=== PATIENT | female | born 1990 | race Caucasian/White ===

== ENCOUNTER 2022-07-11 20:48 | Emergency (ER) | payer OTHER ==
[2022-07-11] MEDS ORDERED: SODIUM CHLORIDE 0.9% 1,000 ML IV STA (21:10)
--- NOTE | 2022-07-11 21:14 | ED Physician Documentation ---
PD HPI CHEST PAIN - Stated complaint Stated Complaint: IRREGULAR HB - Chief complaint Chief Complaint: Cardiac - History obtained from History obtained from: Patient - Additional information Additional information: Patient is a 31-year-old female with previous diagnosis of tachycardia, diabetes presenting for evaluation of feeling her heart racing all day today since 930 this morning. She reports at times it seems that her heart rate gets up to 190s and will come back down. She denies any exacerbating or alleviating factors. She has had a history of tachycardia in the past but it was brief and would only last a minute or 2. She did used to see a legal records clerk in [place] and did have a monitor on at some time. It was unclear what the diagnosis was but she was started on Toprol 50 mg daily which she has been compliant with.She denies alcohol use, excess caffeine use or recent use of cold medications. She denies recently being ill. She Reports decreased appetite today. She reports chest heaviness but not pain. She denies concern for .She does have a primary care doctor here but has not received referrals to a legal records clerk. She denies previous history of blood clots. Review of Systems Constitutional: denies: Fever Nose: denies: Congestion Cardiac: reports: Chest pain / pressure, Palpitations Respiratory: denies: Dyspnea, Cough GI: denies: Abdominal Pain, Vomiting, Diarrhea : denies: Dysuria Musculoskeletal: denies: Back pain Neurologic: denies: Syncope, Headache PD PAST MEDICAL HISTORY - Present Medications Home Medications: Ambulatory Orders Medication Instructions Recorded Confirmed Amitriptyline [Elavil] 10 mg PO QPM 07/11/22 07/11/22 Losartan [Cozaar] 100 mg PO DAILY 07/11/22 07/11/22 Metoprolol Succinate [Toprol Xl] 50 mg PO DAILY 07/11/22 07/11/22 glipiZIDE [Glucotrol] 5 mg PO DAILY 07/11/22 07/11/22 - Allergies Allergies/Adverse Reactions: Allergies Allergy/AdvReac Type Severity Reaction Status Date / Time Penicillins AdvReac Unknown Verified 07/11/22 20:58 PD ED PE NORMAL - General General: Alert and oriented X 3, No acute distress, Well developed/nourished - HEENT HEENT: Atraumatic, Moist mucous membranes - Neck Neck: Supple, no meningeal sign - Cardiac Cardiac: No murmur, Strong equal pulses, Other (Tachycardic, regular rhythm) - Respiratory Respiratory: No respiratory distress, Clear bilaterally - Abdomen Abdomen: Soft, Non tender, Non distended - Derm Derm: Warm and dry - Extremities Extremities: No edema - Neuro Neuro: No motor deficit, Normal speech Results - Vitals Vitals: Vital Signs - 24 hr 07/11/22 07/11/22 07/11/22 20:55 22:02 23:05 Temperature 36.4 C L Heart Rate 120 H 81 90 Respiratory 18 12 23 Rate Blood Pressure 141/90 H 112/88 H 111/69 O2 Saturation 98 100 100 Oxygen O2 Source Room air - EKG (time done) 2052 Rate: Rate (enter#) (119) Rhythm: Sinus tachycardia Intervals: Other (QTC 463) Ischemia: Q waves (Inferior leads). No: ST elevation c/w ischemia, ST d epression Compare to prior EKG: Old EKG unavailable (Patient also reports she does not have access to prior EKGs through a patient portal) - Labs Labs: Laboratory Tests 07/11/22 07/11/22 07/11/22 21:09 21:23 21:23 WBC 12.2 H RBC 4.34 Hgb 13.0 Hct 37.4 MCV 86.2 MCH 30.0 MCHC 34.8 RDW 12.5 Plt Count 259 MPV 10.9 H Neut # (Auto) 8.3 H Lymph # (Auto) 3.0 [place] # (Auto) 0.7 Eos # (Auto) 0.2 Baso # (Auto) 0.1 Absolute Nucleated RBC 0.00 Nucleated RBC % 0.0 D-Dimer Sodium 135 Potassium 3.8 Chloride 100 L Carbon Dioxide 24 Anion Gap 11.0 BUN 11 Creatinine 0.7 Estimated GFR (MDRD) 97 Glucose 217 H Calcium 9.8 Magnesium 2.2 Total Bilirubin 0.7 AST 20 ALT 27 Alkaline Phosphatase 34 L Troponin I High Sens Total Protein 8.0 Albumin 4.8 Globulin 3.2 Albumin/Globulin Ratio 1.5 TSH Urine HCG, Qual NEGATIVE Urine Opiates Screen NEGATIVE Ur Oxycodone Screen NEGATIVE Urine Methadone Screen NEGATIVE Ur Propoxyphene Screen NEGATIVE Ur Barbiturates Screen NEGATIVE Ur Tricyclics Screen POSITIVE H Ur Phencyclidine Scrn NEGATIVE Ur Amphetamine Screen NEGATIVE U Methamphetamines Scrn NEGATIVE U Benzodiazepines Scrn NEGATIVE Urine Cocaine Screen NEGATIVE U Cannabinoids Screen POSITIVE H 07/11/22 07/11/22 07/11/22 21:23 21:23 21:23 WBC RBC Hgb Hct MCV MCH MCHC RDW Plt Count MPV Neut # (Auto) Lymph # (Auto) [place] # (Auto) Eos # (Auto) Baso # (Auto) Absolute Nucleated RBC Nucleated RBC % D-Dimer 234.7 Sodium Potassium Chloride Carbon Dioxide Anion Gap BUN Creatinine Estimated GFR (MDRD) Glucose Calcium Magnesium Total Bilirubin AST ALT Alkaline Phosphatase Troponin I High Sens < 2.3 L Total Protein Albumin Globulin Albumin/Globulin Ratio TSH 4.02 Urine HCG, Qual Urine Opiates Screen Ur Oxycodone Screen Urine Methadone Screen Ur Propoxyphene Screen Ur Barbiturates Screen Ur Tricyclics Screen Ur Phencyclidine Scrn Ur Amphetamine Screen U Methamphetamines Scrn U Benzodiazepines Scrn Urine Cocaine Screen U Cannabinoids Screen PD MEDICAL DECISION MAKING - ED course Complexity details: reviewed results, re-evaluated patient, d/w patient, d/w family ED course: Patient with history of Tachycardia presenting for evaluation of feeling her heart racing. EKG demonstrates sinus tachycardia.Heart rate did not get above 120 or into the range to suggest SVT On the emergency department. Hemodynamically stable. Patient denies really any symptoms here such as chest pain or difficulty breathing. Labs obtained.D-dimer <250. Troponin is negative. Electrolytes reassuring and thyroid within normal limits. Chest x-ray is clear. Patient given IV fluids and heart rate improved with hydration to 70s to 80s. Patient is feeling better. Discussed continuing with her usual Toprol dose and close follow-up with her primary care doctor. Recommend cardiology Follow-up if PCP is able to place a referral as she has [facility]. Discussed concerning symptoms to return for.Patient and spouse at the bedside agreeable with plan. 2151 - Doing better, heart rate in 80s and 90s on pathologist assistant. Departure - Departure Disposition: 01 Home, Self Care Clinical Impression: Sinus tachycardia Condition: Stable Instructions: Tachycardia, ED Valsalva Maneuver Follow-Up: Wei Gonzalez [Primary Care Provider] - Comments: You were evaluated for a fast heart rate.Although your heart rate is fast, your rhythm appears to still be a normal one. We did check your electrolytes as well as markers to check for signs of a heart attack or blood clot As well as your thyroid function and those labs are all reassuring. Your blood sugar was slightly high in the 200 range. Your chest x-ray is clear. Your heart rate has improved here with hydration. I would recommend close follow-up with your primary care doctor. I would call or communicate with their office tomorrow to let them know you were in the emergency department for a fast heart rate to see if they will place a cardiology referral.If anytime you have any worsening symptoms please return to the emergency department. Please continue with taking your medications as prescribed. Discharge Date/Time: 07/11/22 23:05
[2022-07-11 21:18] LABS: MUDS CUTOFF CONCENTRATIONS CUTOFF CONC BELOW:
[2022-07-11 21:21] LABS: HCG UR QUAL NEGATIVE
[2022-07-11 21:32] LABS: AMPHETAMINE SCREEN,URINE NEGATIVE (NEGATIVE); BARBITURATE SCREEN,UR NEGATIVE (NEGATIVE); BENZODIAZEPINES SCREEN, URINE NEGATIVE (NEGATIVE); COCAINE SCREEN URINE NEGATIVE (NEGATIVE); METHADONE SCREEN, URINE NEGATIVE (NEGATIVE); METHAMPHETAMINES SCREEN, URINE NEGATIVE (NEGATIVE); OPIATE SCREEN, URINE NEGATIVE (NEGATIVE); OXYCODONE SCREEN, URINE NEGATIVE (NEGATIVE); PROPOXYPHENE SCREEN, URINE NEGATIVE (NEGATIVE); THC CANNABINOID SCREEN, URINE POSITIVE (NEGATIVE); TRICYCLIC ANTIDEPRESSANT,URINE POSITIVE (NEGATIVE)
[2022-07-11 21:32] LABS: BASOPHILS # (AUTO) 0.1 10^3/uL (0.0-0.1); BASOPHILS % (AUTO) 0.5 %; EOSINOPHILS # (AUTO) 0.2 10^3/uL (0.0-0.7); EOSINOPHILS % (AUTO) 1.9 %; HCT - HEMATOCRIT 37.4 % (37.0-47.0); LYMPHOCYTES % (AUTO) 24.3 %; MEAN CORPUSCULAR HGB CONC 34.8 g/dL (32.0-36.0); MEAN CORPUSCULAR VOLUME 86.2 fL (81.0-99.0); MEAN PLATELET VOLUME 10.9 fL (7.9-10.8); MONOCYTES # (AUTO) 0.7 10^3/uL (0.0-1.0); MONOCYTES % (AUTO) 5.5 %; NEUTROPHILS # (AUTO) 8.3 10^3/uL (1.5-6.6); NEUTROPHILS % (AUTO) 67.6 %; PLT - PLATELET COUNT 259 10^3/uL (130-450); RED BLOOD COUNT 4.34 10^6/uL (4.20-5.40); RED CELL DISTRIBUTION WIDTH 12.5 % (12.0-15.0); WHITE BLOOD COUNT 12.2 x10^3/uL (4.8-10.8)
--- NOTE | 2022-07-11 21:47 | XRAY Report ---
PROCEDURE: Chest 1 View X-Ray INDICATIONS: chest tightness TECHNIQUE: One view of the chest was acquired. COMPARISON: None. FINDINGS: Surgical changes and devices: None. Lungs and pleura: No pleural effusions or pneumothorax. The medial lung apices are partially obscured by patient neck soft tissues. The visualized lungs are clear. Mediastinum: Mediastinal contours appear normal. Heart size is normal. Bones and chest wall: No suspicious bony lesions. Overlying soft tissues appear unremarkable. IMPRESSION: 1. No acute cardiopulmonary disease. Reviewed by: Harpreet Fernández MD on 07/11/2022 9:46 PM PDT Approved by: Harpreet Fernández MD on 07/11/2022 9:46 PM PDT Station ID: [id number]
[2022-07-11 21:58] LABS: ALBUMIN 4.8 g/dL (3.2-5.5); ALBUMIN/GLOBULIN RATIO 1.5 (1.0-2.2); BILIRUBIN,TOTAL 0.7 mg/dL (0.2-1.0); CALCIUM 9.8 mg/dL (8.5-10.3); CREATININE 0.7 mg/dL (0.4-1.0); MAGNESIUM 2.2 mg/dL (1.7-2.8); POTASSIUM 3.8 mmol/L (3.5-5.0)
[2022-07-11 23:06] VITALS: BP 111/69
== END 2022-07-11 23:05 | disposition home or self-care (01) ==
LOC: ED 20:48
DX: R00.0 Tachycardia, unspecified (principal); R07.89 Other chest pain; E11.65 Type 2 diabetes mellitus with hyperglycemia; Z79.84 Long term (current) use of oral hypoglycemic drugs
CPT/HCPCS: 36415; 80053; 80306; 81025; 83735; 84443; 84484; 85025; 85379; 93005; 96360; 99284